=== PATIENT | female | born 1960 | race Caucasian/White ===

== ENCOUNTER 2016-07-28 10:16 | Emergency (ER) | payer BC, OTHER ==
[2016-07-28 09:48] LABS: INFLUENZA A POS (NEG); INFLUENZA B NEG (NEG)
[~2016-07-28 10:16] MED LIST: ANTIBIOTIC; DOXYCYCLINE150 MG PO; NITROFURANTOIN100 M3; NO MEDICATIONS; PERCOCET 51 UDTAB 5/ PO; PYRIDIUM100 MG; TYLENOL325 M1 PO
[2016-12-19] MEDS ORDERED: VITAMIN D1000 UNI2 PO (12:44)
[2016-12-19] MEDS ORDERED: CALCIUM 600+D1 EACH PO (12:44)
[2016-12-19] MEDS ORDERED: MULTIVITAMINS1 EAC3 (12:45)
== END 2016-07-28 10:35 | disposition home or self-care (01) ==
LOC: SED 10:16
PROVIDERS: Emergency Medicine
DX: J09.X2 Influenza due to identified novel influenza A virus with other respiratory manifestations (principal); F17.210 Nicotine dependence, cigarettes, uncomplicated
CPT/HCPCS: 87804; 99282

== ENCOUNTER → 2016-12-19 | Day surgery (SDC) | payer BC, OTHER ==
[~2016-12-19] MED LIST changes: +CALCIUM 600+D1 EACH PO; +MULTIVITAMINS1 EAC3; +VITAMIN D1000 UNI2 PO
--- NOTE | ~2016-12-19 | OR ---
Unit #: [id number] #: [id number] Patient: MARTIN GUZMAN [id number] [address] [place], [place] [address] [id number] MR#: [id number] NAME: MARTIN GUZMAN ROOM: Date of Procedure: 12/19/2016 Admission Date: 12/19/2016 Surgeon: Rhys Cole M.D. : 1960 Attending Physician: Rhys Cole M.D. Primary Care Physician: Ian Wan M.D. OPERATIVE REPORT PREOPERATIVE DIAGNOSES Colorectal cancer screening in an average-risk patient. PROCEDURES PERFORMED Colonoscopy and polypectomy. POSTOPERATIVE DIAGNOSES 1. The patient had total of 4 polyps, 2 in the rectum, 1 in the descending colon, 1 in the transverse colon. These ranged in size from 5 mm to 1 cm each. All the polyps were sessile and were removed using snare polypectomy. 2. Mild sigmoid and descending colon diverticulosis. 3. Rest of the examination up to cecum was normal. The quality of the prep was excellent. RECOMMENDATIONS 1. Follow up results of polyp histology. 2. Repeat colonoscopy in 5 years. SEDATION USED MAC. DESCRIPTION OF PROCEDURE Following detailed explanation of the potential risks and complications of a colonoscopy, namely perforation, bleeding, and complications related to sedation, the patient was brought to GI lab and laid in the left lateral decubitus position. A digital rectal examination was performed, which was normal. Lubricated tip of the Olympus video colonoscope was inserted through the anus and advanced under direct vision. The scope was advanced and passed up to sigmoid into descending colon. Multiple small to medium sized diverticula were seen in this area. The scope tip was then navigated all the way up to cecum with visualization of the ileocecal valve and the appendiceal orifice. Preparation was excellent with good visualization and photodocumentation was obtained. Last several inches of terminal ileum also visualized after intubation of the ileocecal valve and appeared normal. Successive segments of the colonic mucosa were examined upon withdrawal. The patient was found to have a total of 4 polyps, 1 each in the transverse colon and descending colon and 2 in the rectum. All the polyps were sessile and were removed using snare polypectomy. They were retrieved and sent for histology. Excellent hemostasis was achieved and photodocumentation was obtained. The patient did not have any additional polyps. Other than the left-sided diverticula, no other Unit #: [id number] #: [id number] Patient: MARTIN GUZMAN abnormalities noted. No hemorrhoids were seen at the anal verge. The scope was then withdrawn. The patient returned to recovery area. The patient tolerated the procedure without any postprocedure complications. Dictated by... Yinka Lerma/mariella TD: 12/19/2016 15:22 JOB #: [id number] CC: Ian Wan M.D. OPERATIVE REPORT Page 1 of 1 X Rhys Cole MD X PROCEDURE OPERATIVE NOTE
== END | disposition home or self-care (01) ==
LOC: COPS 11:55
DX: Z12.11 Encounter for screening for malignant neoplasm of colon (principal); D12.3 Benign neoplasm of transverse colon; D12.4 Benign neoplasm of descending colon; K62.1 Rectal polyp; K57.30 Diverticulosis of large intestine without perforation or abscess without bleeding; F17.210 Nicotine dependence, cigarettes, uncomplicated; Z90.710 Acquired absence of both cervix and uterus; Z79.899 Other long term (current) drug therapy
CPT/HCPCS: 88305; J2250